=== PATIENT | male | born 1960 | race Caucasian/White ===

== ENCOUNTER 2016-11-24 22:11 | Emergency (ER) | payer SELFPAY ==
[~2016-11-24] VITALS: Ht 188 cm; Wt 81.8 kg
[~2016-11-24 22:11] MED LIST: Z.0.NO CURRENT MEDS
[2016-11-24 22:18] VITALS: BP 107/59; PULSE 91; RESP 18; TEMP 98.2; O2SAT 97
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
[2016-11-24] MEDS ORDERED: LIDOCAINE HCL 1% 50 ML VIAL ONE (22:38)
[2016-11-24] MEDS ORDERED: MORPHINE SULFATE 4 MG/ML INJ IV PUSH ONE ×2 (22:45→23:15)
[2016-11-24] MEDS ORDERED: SODIUM CHLOR 0.9% 1000 ML INJ 1,000 ML IV ONE (23:15)
[2016-11-24] MEDS ORDERED: LIDOCAINE HCL 1% 50 ML VIAL INFIL ONE (23:15)
[2016-11-24] MEDS ORDERED: ceFAZolin 2 GM PREMIX 50 ML IV ONE (23:15)
[2016-11-25 00:19] LABS: AUTOMATED NEUTROPHIL # 5.1 TH/MM3 (1.8-7.7); BASOPHIL % 0.4 % (0.0-2.0); EOSINOPHIL # 0.4 TH/MM3 (0-0.4); EOSINOPHIL % 4.3 % (0.0-4.0); HEMATOCRIT 34.1 % (39.0-51.0); HEMO FLAGS DIFF FINAL; LYMPH % 31.6 % (9.0-44.0); LYMPHOCYTE # 2.7 TH/MM3 (1.0-4.8); MEAN CELL VOLUME 98.5 FL (80.0-100.0); MEAN CORPUSCULAR HEMOGLOBIN 32.9 PG (27.0-34.0); MEAN CORPUSCULAR HGB CONC 33.3 % (32.0-36.0); MONO % 4.6 % (0.0-8.0); NEUT % 59.1 % (16.0-70.0); PLATELET COUNT 255 TH/MM3 (150-450); RED BLOOD COUNT 3.46 MIL/MM3 (4.50-5.90); RED CELL DISTRIBUTION WIDTH 14.5 % (11.6-17.2); WHITE BLOOD COUNT 8.6 TH/MM3 (4.0-11.0)
[2016-11-25 00:40] LABS: ALKALINE PHOSPHATASE 63 U/L (45-117); ALT (GPT) 45 U/L (12-78); ANION GAP 6 MEQ/L (5-15); AST (GOT) 29 U/L (15-37); BLOOD UREA NITROGEN 22 MG/DL (7-18); CHLORIDE 113 MEQ/L (98-107); GLOMERULAR FILTRATION RATE 100 ML/MIN (>89); SODIUM (NA) 145 MEQ/L (136-145); TOTAL BILIRUBIN ADULT 0.2 MG/DL (0.2-1.0)
[2016-11-25] MEDS ORDERED: IBUPROFEN 600 MG TAB PO ONE (01:30)
[2016-11-25 02:14] VITALS: BP 128/83; PULSE 76; RESP 18; TEMP 99.3; O2SAT 99
[2016-11-25 03:00] LABS: AMPHETAMINE, URINE NEG (NEG); BARBITURATES, URINE NEG (NEG); COCAINE, URINE POS (NEG)
[2016-11-25 10:51] VITALS: BP 101/66; PULSE 82; RESP 16; TEMP 96.6; O2SAT 98
[2016-11-25 14:34] VITALS: BP 91/64; PULSE 57; RESP 18; TEMP 98.5; O2SAT 96
[2016-11-25 18:32] VITALS: BP 91/64; TEMP 98.5
== END 2016-11-25 18:46 | disposition home or self-care (01) ==
LOC: NEPD 22:11 → NEPJ 11-25 18:46
DX: S51.812A Laceration without foreign body of left forearm, initial encounter (principal); R58 Hemorrhage, not elsewhere classified; T14.91 Suicide attempt; F10.929 Alcohol use, unspecified with intoxication, unspecified; F17.200 Nicotine dependence, unspecified, uncomplicated; X78.8XXA Intentional self-harm by other sharp object, initial encounter
CPT/HCPCS: 12032; 80053; 80307; 85025; 96374; 96375; 96376; 99291; J0690; J2270; J7030

== ENCOUNTER 2018-07-17 10:21 | Observation (INO) ==
--- NOTE | 2018-07-17 10:39 | ED ---
HPI General Chief Complaint: Chest Pain Stated Complaint: congestion/palpitations Time Seen by Provider: 07/17/18 10:36 Source: patient Mode of arrival: ambulatory Limitations: no limitations History of Present Illness HPI narrative: Patient comes in complaining of chest pain for the past 2 days...productive of green sputum, denies fever, states not oxygen dependant. patient also c/o palpitations assoc with gen weakness as well. MD complaint: Reports chest pain STEMI Alert: No Onset (ago): day(s) (2) Duration: intermittent Onset: during rest Pain location: Reports substernal Severity scale (1-10): 6 Quality: Reports tightness Pain radiation: Reports none Relieving factors: nothing Exacerbating factors: nothing Treatments prior to arrival chest pain: Reports none Related Data Home Medications Medication Instructions Recorded Confirmed No Known Home Medications 12/07/17 07/17/18 Previous Rx's Medication Instructions Recorded prednisone 20 mg PO DAILY #7 tab 07/18/18 sulfamethoxazole-trimethoprim 1 tab PO Q12H #20 tab 07/18/18 [Bactrim DS] Allergies Allergy/AdvReac Type Severity Reaction Status Date / Time No Known Allergies Allergy Verified 07/17/18 10:33 Review of Systems ROS: all other systems reviewed are negative PMFSH History History Provided By: Patient Medical History Medical History Hx of head injury (Acute) Surgical History Surgical History History of back surgery (Acute) Hx of appendectomy (Acute) Hx of cholecystectomy (Acute) Hx of neck surgery (Acute) Social History Social History Substance History: Past History Second Hand Smoke Exposure: No Smoking Status: Current some day smoker Tobacco Type: Cigarettes How Often Do You Have a Drink Containing Alcohol: Monthly or less Recent Travel [facility] within the Last 8 Weeks: No Recent Out of Country Travel within the Last 8 Weeks: No Immunization History Tetanus Immunization: <5 Years Exam Narrative Exam Narrative: GENERAL: Well-nourished, well-developed patient in no apparent distress. SKIN: Warm and dry. HEAD: Atraumatic. Normocephalic. EYES: Pupils equal and round. No scleral icterus. No injection or drainage. ENT: No nasal bleeding or discharge. Mucous membranes pink and moist. NECK: Trachea midline. No JVD. CARDIOVASCULAR: Regular rate and rhythm. no rubs or gallops RESPIRATORY: No accessory muscle use. Clear to auscultation. Breath sounds equal bilaterally. GASTROINTESTINAL: Abdomen soft, non-tender, nondistended. No rebound or guarding MUSCULOSKELETAL: Extremities without clubbing, cyanosis, or edema. No obvious deformities. NEUROLOGICAL: Awake and alert. No obvious cranial nerve deficits. Motor grossly within normal limits. Five out of 5 muscle strength in the arms and legs. Normal speech. PSYCHIATRIC: Appropriate mood and affect; insight and judgment normal. Course Initial Documented Vital Signs Temperature 98 F 07/17/18 10:29 Pulse Rate 86 07/17/18 10:29 Respiratory Rate 14 07/17/18 10:29 Blood Pressure 117/81 07/17/18 10:29 Pulse Oximetry 98 07/17/18 10:29 Last Documented Vital Signs Temperature 98.9 F 07/18/18 12:00 Pulse Rate 62 07/18/18 12:00 Respiratory Rate 20 07/18/18 12:00 Blood Pressure 86/50 L 07/18/18 12:00 Pulse Oximetry 93 L 07/18/18 12:00 Medical Decision Making MDM Narrative Medical decision making narrative: No leukocytosis, no left shift, no anemia, normal platelet count Normal electrolytes Normal kidney liver pancreatic functions Mild hyperglycemia 162 First set of cardiac enzymes negative CT chest read by radiologist as negative for pulmonary embolus, does have trace pericardial effusion which is a new finding since November 2017. Moderate coronary calcifications Patient was advised to stay for chest pain center to rule out Medical Screen Exam Complete: Yes Emergency Medical Condition: Yes Lab Data Result diagrams: 07/17/18 10:47 07/17/18 10:55 Lab Results 07/17/18 07/17/18 07/17/18 Range/Units 10:35 10:47 10:55 CBC w Diff Auto diff final WBC 5.5 (4.0-11.0) th/mm3 RBC 4.23 L (4.50-5.90) mil/mm3 Hgb 14.6 (13.0-17.0) gm/dL Hct 43.4 (39.0-51.0) % MCV 102.7 H (80.0-100.0) fL MCH 34.5 H (27.0-34.0) pg MCHC 33.6 (32.0-36.0) % RDW 11.5 L (11.6-17.2) % Plt Count 261 (150-450) th/mm3 MPV 7.8 (7.0-11.0) fL Neut % (Auto) 69.3 (16.0-70.0) % Lymph % (Auto) 20.3 (9.0-44.0) % [place] % (Auto) 8.7 H (0.0-8.0) % Eos % (Auto) 0.6 (0.0-4.0) % Baso % (Auto) 1.1 (0.0-2.0) % Neut # (Auto) 3.8 (1.8-7.7) th/mm3 Lymph # (Auto) 1.1 (1.0-4.8) th/mm3 [place] # (Auto) 0.5 (0.0-0.9) th/mm3 Eos # (Auto) 0.0 (0.0-0.4) th/mm3 Baso # (Auto) 0.1 (0.0-0.2) th/mm3 WBC Differential . Differential Comment . Sodium (136-145) meq/L Potassium (3.5-5.1) meq/L Chloride (98-107) meq/L Carbon Dioxide (21.0-32.0) meq/L Anion Gap (5-15) meq/L BUN (7-18) mg/dL Creatinine (0.60-1.30) mg/dL Estimated GFR (>89) mL/min Random Glucose (74-106) mg/dL Hemoglobin A1c (4.3-6.0) % Lactic Acid 1.6 (0.4-2.0) mmol/L Calcium (8.5-10.1) mg/dL Total Bilirubin (0.2-1.0) mg/dL AST (15-37) U/L ALT (12-78) U/L Alkaline Phosphatase (45-117) U/L Total Creatine Kinase (39-308) U/L Troponin I (0.02-0.05) ng/mL B-Natriuretic Peptide 76 (0-100) pg/mL Total Protein (6.4-8.2) g/dL Albumin (3.4-5.0) g/dL Triglycerides (42-150) mg/dL Cholesterol (120-200) mg/dL LDL Cholesterol, Calc (0-99) mg/dL HDL Cholesterol (40.0-60.0) mg/dL Cholesterol/HDL Ratio Ratio Lipase (73-393) U/L 07/17/18 07/17/18 07/17/18 Range/Units 10:55 10:55 17:04 CBC w Diff WBC (4.0-11.0) th/mm3 RBC (4.50-5.90) mil/mm3 Hgb (13.0-17.0) gm/dL Hct (39.0-51.0) % MCV (80.0-100.0) fL MCH (27.0-34.0) pg MCHC (32.0-36.0) % RDW (11.6-17.2) % Plt Count (150-450) th/mm3 MPV (7.0-11.0) fL Neut % (Auto) (16.0-70.0) % Lymph % (Auto) (9.0-44.0) % [place] % (Auto) (0.0-8.0) % Eos % (Auto) (0.0-4.0) % Baso % (Auto) (0.0-2.0) % Neut # (Auto) (1.8-7.7) th/mm3 Lymph # (Auto) (1.0-4.8) th/mm3 [place] # (Auto) (0.0-0.9) th/mm3 Eos # (Auto) (0.0-0.4) th/mm3 Baso # (Auto) (0.0-0.2) th/mm3 WBC Differential Differential Comment Sodium 136 (136-145) meq/L Potassium 3.9 (3.5-5.1) meq/L Chloride 102 (98-107) meq/L Carbon Dioxide 29.0 (21.0-32.0) meq/L Anion Gap 5 (5-15) meq/L BUN 12 (7-18) mg/dL Creatinine 0.92 (0.60-1.30) mg/dL Estimated GFR 84 L (>89) mL/min Random Glucose 162 H (74-106) mg/dL Hemoglobin A1c (4.3-6.0) % Lactic Acid (0.4-2.0) mmol/L Calcium 8.2 L (8.5-10.1) mg/dL Total Bilirubin 0.3 (0.2-1.0) mg/dL AST 39 H (15-37) U/L ALT 45 (12-78) U/L Alkaline Phosphatase 74 (45-117) U/L Total Creatine Kinase 74 69 (39-308) U/L Troponin I Less than 0.02 L Less than 0.02 L (0.02-0.05) ng/mL B-Natriuretic Peptide (0-100) pg/mL Total Protein 7.2 (6.4-8.2) g/dL Albumin 3.6 (3.4-5.0) g/dL Triglycerides 59 (42-150) mg/dL Cholesterol 128 (120-200) mg/dL LDL Cholesterol, Calc 57 (0-99) mg/dL HDL Cholesterol 58.9 (40.0-60.0) mg/dL Cholesterol/HDL Ratio 2.17 Ratio Lipase 118 (73-393) U/L 07/17/18 07/18/18 Range/Units 19:12 04:55 CBC w Diff WBC (4.0-11.0) th/mm3 RBC (4.50-5.90) mil/mm3 Hgb (13.0-17.0) gm/dL Hct (39.0-51.0) % MCV (80.0-100.0) fL MCH (27.0-34.0) pg MCHC (32.0-36.0) % RDW (11.6-17.2) % Plt Count (150-450) th/mm3 MPV (7.0-11.0) fL Neut % (Auto) (16.0-70.0) % Lymph % (Auto) (9.0-44.0) % [place] % (Auto) (0.0-8.0) % Eos % (Auto) (0.0-4.0) % Baso % (Auto) (0.0-2.0) % Neut # (Auto) (1.8-7.7) th/mm3 Lymph # (Auto) (1.0-4.8) th/mm3 [place] # (Auto) (0.0-0.9) th/mm3 Eos # (Auto) (0.0-0.4) th/mm3 Baso # (Auto) (0.0-0.2) th/mm3 WBC Differential Differential Comment Sodium (136-145) meq/L Potassium (3.5-5.1) meq/L Chloride (98-107) meq/L Carbon Dioxide (21.0-32.0) meq/L Anion Gap (5-15) meq/L BUN (7-18) mg/dL Creatinine (0.60-1.30) mg/dL Estimated GFR (>89) mL/min Random Glucose (74-106) mg/dL Hemoglobin A1c 5.5 (4.3-6.0) % Lactic Acid (0.4-2.0) mmol/L Calcium (8.5-10.1) mg/dL Total Bilirubin (0.2-1.0) mg/dL AST (15-37) U/L ALT (12-78) U/L Alkaline Phosphatase (45-117) U/L Total Creatine Kinase 70 (39-308) U/L Troponin I Less than 0.02 L (0.02-0.05) ng/mL B-Natriuretic Peptide (0-100) pg/mL Total Protein (6.4-8.2) g/dL Albumin (3.4-5.0) g/dL Triglycerides (42-150) mg/dL Cholesterol (120-200) mg/dL LDL Cholesterol, Calc (0-99) mg/dL HDL Cholesterol (40.0-60.0) mg/dL Cholesterol/HDL Ratio Ratio Lipase (73-393) U/L Imaging Data Radiologist's impression: Chest CTA 07/17/18 10:46 CONCLUSION: 1. Negative for pulmonary embolus. Trace pericardial effusion. This is a new finding since November 2017. 2. Moderate coronary calcifications. Chest X-Ray 07/17/18 10:47 CONCLUSION: The lungs are clear. Myocardial Perfusion Scan Nuc Med 07/18/18 09:00 CONCLUSION: 1. Negative examination. ECG Data EKG Prior to Arrival: No Attestation: I personally reviewed and interpreted this ECG as follows: Prior ECG tracings: not available for review Interpretation: Normal sinus rhythm, 84 bpm, normal intervals except for short appearing GA segment, some J-point elevation, but no evidence of any acute ST elevation HI pattern. Discharge Plan Discharge Disposition Patient Disposition: ED Admit(ED Internal Use Only) Discharge Condition Condition: Stable Discharge Order Discharge Orders: Discharge Order (Routine); Ordered 07/18/18 Ordered By: Shine Cartagena ED Use Only Admit Order (Routine); Ordered 07/17/18 Ordered By: Jasper Coyle Discharge Details Diagnosis: Chest pain, rule out acute myocardial infarction Physicians Team ED Provider: Jasper Coyle Primary Care Provider: Chu Arthur Attending Provider: Shine Cartagena Status ED Status: Left Department Discharge Information Discharge Date/Time: 07/17/18 14:35
[2018-07-17] MEDS ORDERED: Morphine Inj 4 MG/ML Vial IV.PUSH ONE (10:46)
[2018-07-17] MEDS ORDERED: Sodium Chlor 0.9% Inj 500 ML IV.SIG ONE (10:46)
[2018-07-17 11:07] LABS: Baso # (Auto) 0.1 th/mm3 (0.0-0.2); Baso % (Auto) 1.1 % (0.0-2.0); Eos % (Auto) 0.6 % (0.0-4.0); Hematocrit 43.4 % (39.0-51.0); Hemoglobin 14.6 gm/dL (13.0-17.0); Lymph # (Auto) 1.1 th/mm3 (1.0-4.8); Lymph % (Auto) 20.3 % (9.0-44.0); Mean Corpuscular HGB Conc 33.6 % (32.0-36.0); Mean Corpuscular Hemoglobin 34.5 pg (27.0-34.0); Mean Corpuscular Volume 102.7 fL (80.0-100.0); Mean Platelet Volume 7.8 fL (7.0-11.0); Mono # (Auto) 0.5 th/mm3 (0.0-0.9); Mono % (Auto) 8.7 % (0.0-8.0); Neut # (Auto) 3.8 th/mm3 (1.8-7.7); Neut % (Auto) 69.3 % (16.0-70.0); Platelet Count 261 th/mm3 (150-450); Red Blood Count 4.23 mil/mm3 (4.50-5.90); Red Cell Distribution Width 11.5 % (11.6-17.2); White Blood Count 5.5 th/mm3 (4.0-11.0)
[2018-07-17 11:15] LABS: Chloride 102 meq/L (98-107); Potassium 3.9 meq/L (3.5-5.1); Sodium 136 meq/L (136-145)
[2018-07-17 11:18] LABS: Calcium 8.2 mg/dL (8.5-10.1)
[2018-07-17 11:19] LABS: Albumin 3.6 g/dL (3.4-5.0); Anion Gap 5 meq/L (5-15); Blood Urea Nitrogen 12 mg/dL (7-18); Glucose,Random 162 mg/dL (74-106)
[2018-07-17 11:22] LABS: Alanine Aminotransferase 45 U/L (12-78); Aspartate Aminotransferase 39 U/L (15-37); Glomerular Filtration Rate 84 mL/min (>89)
[2018-07-17 11:23] LABS: Total Protein 7.2 g/dL (6.4-8.2)
[2018-07-17 11:25] LABS: Alkaline Phosphatase 74 U/L (45-117)
--- NOTE | 2018-07-17 11:28 | XR ---
EXAM DATE: 07/17/2018 11:15 AM EST AGE/SEX: 58 years / Male INDICATIONS: Cough, congestion, heart palpatations, chest pain x 3 days. CLINICAL DATA: This is the patient's initial encounter. Patient reports that signs and symptoms have been present for 3 days and indicates a pain score of 5/10. MEDICAL/SURGICAL HISTORY: None. Appendectomy. Cholecystectomy. COMPARISON: [facility], CHEST 1V SINGLE AP, 12/07/2017. . FINDINGS: A single AP view of the chest demonstrates the lungs to be symmetrically aerated without evidence of mass, infiltrate or effusion. The cardiomediastinal contours are unremarkable. Osseous structures a re intact. CONCLUSION: The lungs are clear. Electronically signed by: Shine Vásquez MD Board Certified Radiologist 07/17/2018 11:27 AM EST
[2018-07-17 11:34] LABS: Creatine Kinase 74 U/L (39-308)
--- NOTE | 2018-07-17 11:45 | CT ---
EXAM DATE: 07/17/2018 11:39 AM EST AGE/SEX: 58 years / Male INDICATIONS: Substernal chest pain x 2 days. General weakness. Coughing up green sputum. CLINICAL DATA: This is the patient's initial encounter. Patient reports that signs and symptoms have been present for 2 days and indicates a pain score of 5/10. MEDICAL/SURGICAL HISTORY: None. Appendectomy. Cholecystectomy. Neck and back surgeries. RADIATION DOSE: 8.96 CTDI (mGy) COMPARISON: [facility], CTA PULMONARY W CONTRAST W 3D, 12/07/2017. . TECHNIQUE: Volumetric scanning was performed using a multi-row detector CT scanner during bolus infu vanessa of 75 ml Omnipaque 350 (iohexol) nonionic water-soluble contrast as a single exam dose. The angela a was post processed with a variety of visualization algorithms including full volume maximum intensi ty projection and sliding thin slab reformation. Using automated exposure control and adjustment of the mA and/or kV according to patient size, radiation dose was kept as low as reasonably achievable t o obtain optimal diagnostic quality images. DICOM format image data is available electronically for review and comparison. FINDINGS: No filling defects are seen to suggest pulmonary embolic disease. No new lung consolidation. There is no pleural effusion. There is trace pericardial fluid. Moderate coronary calcifications. There is no hilar, mediastinal or axillary adenopathy. No acute bony abnormalities. CONCLUSION: 1. Negative for pulmonary embolus. Trace pericardial effusion. This is a new finding since November 2017 . 2. Moderate coronary calcifications. Electronically signed by: Sandip Davis MD Board Certified Radiologist 07/17/2018 11:43 AM EST
--- NOTE | 2018-07-17 15:45 | ECG ---
Date Performed: 07/17/2018 Time Performed: 10:32:08 PTAGE: 58 years EKG: Sinus rhythm WITH SHORT MT INTERVAL BORDERLINE RIGHT AXIS DEVIATION BORDERLINE ECG Since PREVIOUS TRACING , no significant change noted PREVIOUS TRACIN12/07/2017 12.44 DOCTOR: Guadalupe Jaquez Interpretating Date/Time 07/17/2018 15:43:12
[2018-07-17] MEDS ORDERED: Temazepam 15 MG Capsule PO PRN (16:32)
--- NOTE | 2018-07-17 16:40 | P.HPIM ---
History of Present Illness Primary Care Physician: Chu Arthur DO Chief Complaint: chest pain History of Present Illness: 58-year-old man in for 30+ year presented to the ED for evaluation of described as heaviness, stabbing without any radiation since Friday, July 13, 2018 associated with shortness of breath. Patient also describes a sensation of click pain in his anterior chest. He also reported sputum production on Saturday however denies any febrile episode. Patient states, he is concerned about heart attack secondary to strong family history of heart disease. Chest x-ray in the ED was unremarkable and a chest CTA did not reveal any PE. Initial cardiac enzyme was negative Review of Systems Review of Systems: all other systems reviewed are negative [facility] Medical History Medical History Hx of head injury (Acute) Surgical History Surgical History History of back surgery (Acute) Hx of appendectomy (Acute) Hx of cholecystectomy (Acute) Hx of neck surgery (Acute) Social History Social History Substance History: No History of Abuse Second Hand Smoke Exposure: Yes Smoking Status: Current every day smoker Tobacco Type: Cigarettes How Often Do You Have a Drink Containing Alcohol: 2 to 4 times a month Recent Travel in [facility] within the Last 8 Weeks: No Recent Out of Country Travel within the Last 8 Weeks: No Immunization History Tetanus Immunization: <5 Years Medications and Allergies Allergies Allergy/AdvReac Type Severity Reaction Status Date / Time No Known Allergies Allergy Verified 07/17/18 10:33 Home Medications Medication Instructions Recorded Confirmed Type No Known Home Medications 12/07/17 07/17/18 History Active Medications: Active Medications Acetaminophen (Tylenol) 650 mg PO Q4H PRN PRN Reason: Temp > 100.4 Albuterol (Duoneb Neb (Prn)) 1 ampul NEB Q2HR NEB PRN PRN Reason: SHORTNESS OF BREATH Nitroglycerin (Nitrostat Sl) 0.4 mg SL Q5M PRN PRN Reason: CHEST PAIN Ondansetron HCl (Zofran Inj) 4 mg IV.PUSH Q6H PRN PRN Reason: NAUSEA Sodium Chloride (Ns Flush) 2 ml IV.FLUSH UNSCH PRN PRN Reason: FLUSH AFTER USING IV ACCESS Sodium Chloride (Ns Flush) 2 ml IV.FLUSH BID MINERVA Sodium Chloride (Ns Flush) 2 ml IV.FLUSH PRN PRN PRN Reason: FLUSH AFTER USING IV ACCESS Temazepam (Restoril) 15 mg PO HS PRN PRN Reason: INSOMNIA Physical Exam Vital signs: Vital Signs 07/17/18 10:29 07/17/18 11:04 07/17/18 13:44 Temperature 98 F 98.6 F Pulse Rate 86 66 Respiratory Rate 14 20 Blood Pressure 117/81 117/78 Pulse Oximetry 98 100 97 Intake & Output 07/16/18 07/17/18 07/17/18 18:59 06:59 18:59 Intake Total 500 / 500 Balance 500 / 500 Weight 73.5 kg Intake: IV 500 / 500 NS Inj 500 ML @ Wide Open IV. 500 / 500 SIG ONCE ONE Rx#:[id number] Narrative: GENERAL: NAD SKIN: Warm and dry. HEAD: Atraumatic. Normocephalic. EYES: Pupils equal and round. No scleral icterus. No injection or drainage. ENT: No nasal bleeding or discharge. Mucous membranes pink and moist. NECK: Trachea midline. No JVD. CARDIOVASCULAR: Regular rate and rhythm. RESPIRATORY: No accessory muscle use. Clear to auscultation. Breath sounds equal bilaterally. GASTROINTESTINAL: Abdomen soft, non-tender, nondistended. Hepatic and splenic margins not palpable. MUSCULOSKELETAL: Extremities without clubbing, cyanosis, or edema. No obvious deformities. NEUROLOGICAL: Awake and alert. No obvious cranial nerve deficits. Motor grossly within normal limits. Five out of 5 muscle strength in the arms and legs. Normal speech. PSYCHIATRIC: Appropriate mood and affect; insight and judgment normal. Results Labs CBC & Chem 7: 07/17/18 10:47 07/17/18 10:55 Imaging Impressions Chest CTA 07/17/18 10:46 CONCLUSION: 1. Negative for pulmonary embolus. Trace pericardial effusion. This is a new finding since November 2017. 2. Moderate coronary calcifications. Chest X-Ray 07/17/18 10:47 CONCLUSION: The lungs are clear. Caprini VTE Risk Assessment Caprini VTE Risk Assessment: No/Low Risk (score <= 1) Caprini Risk Assessment Model: Point Value = 1 Point Value = 2 Point Value = 3 Point Value = 5 Age 41-60 Minor surgery BMI > 25 kg/m2 Swollen legs Varicose veins or History of unexplained or recurrent spontaneous Oral contraceptives or hormone replacement Sepsis (< 1 month) Serious lung disease, including pneumonia (< 1 month) Abnormal pulmonary function Acute myocardial infarction Congestive heart failure (< 1 month) History of inflammatory bowel disease Medical patient at bed rest Age 61-74 Arthroscopic surgery Major open surgery (> 45 min) Laparoscopic surgery (> 45 min) Malignancy Confined to bed (> 72 hours) Immobilizing plaster cast Central venous access Age >= 75 History of VTE Family history of VTE Factor V Leiden Prothrombin [id number] Lupus anticoagulant Anticardiolipin antibodies Elevated serum homocysteine Heparin-induced thrombocytopenia Other congenital or acquired thrombophilia Stroke (< 1 month) Elective arthroplasty Hip, pelvis, or leg fracture Acute spinal cord injury (< 1 month) Prophylaxis Regimen: Total Risk Factor Score Risk Level Prophylaxis Regimen 0-1 Low Early ambulation 2 Moderate Order ONE of the following: *Sequential Compression Device (SCD) *Heparin 5000 units SQ BID 3-4 Higher Order ONE of the following medications: *Heparin 5000 units SQ TID *Enoxaparin/Lovenox 40 mg SQ daily (WT < 150 kg, CrCl > 30 mL/min) *Enoxaparin/Lovenox 30 mg SQ daily (WT < 150 kg, CrCl > 10-29 mL/min) *Enoxaparin/Lovenox 30 mg SQ BID (WT < 150 kg, CrCl > 30 mL/min) AND/OR *Sequential Compression Device (SCD) 5 or more Highest Order ONE of the following medications: *Heparin 5000 units SQ TID (Preferred with Epidurals) *Enoxaparin/Lovenox 40 mg SQ daily (WT < 150 kg, CrCl > 30 mL/min) *Enoxaparin/Lovenox 30 mg SQ daily (WT < 150 kg, CrCl > 10-29 mL/min) *Enoxaparin/Lovenox 30 mg SQ BID (WT < 150 kg, CrCl > 30 mL/min) AND *Sequential Compression Device (SCD) Assessment and Plan Plan 58-year-old man with Atypical chest pain Although this appears to be likely secondary to bronchitis, however due to strong family history We will rule out ACS per protocol serial cardiac enzyme and EKGs Check 2D echo and plan for nuclear stress test in a.m. Start aspirin, nitro glycerin as needed and check lipid profile Telemetry monitoring Tobacco cessation strongly advised Bronchitis Start Levaquin 500 mg p.o. daily, prednisone 20 mg daily times 5 days Hyperglycemia Denies any known history of diabetes type 2, will check hemoglobin A1c and treat accordingly Tobacco abuse Patient was strongly counseled on tobacco cessation Hold nicotine patch
[2018-07-17 18:01] LABS: Creatine Kinase 69 U/L (39-308)
[2018-07-17] MEDS: Acetaminophen 325 MG Tablet PO PRN ×2 (18:23→22:45)
[2018-07-17 19:12] LABS: Cholesterol 128 mg/dL (120-200); Triglycerides 59 mg/dL (42-150)
[2018-07-17 19:14] LABS: Chol/HDL Ratio 2.17 Ratio; HDL Cholesterol 58.9 mg/dL (40.0-60.0); LDL Cholesterol,Calculated 57 mg/dL (0-99)
[2018-07-17 19:51] LABS: Creatine Kinase 70 U/L (39-308)
--- NOTE | 2018-07-17 21:08 | ECG ---
Date Performed: 07/17/2018 Time Performed: 19:14:09 PTAGE: 58 years EKG: ECTOPIC ATRIAL RHYTHM WITH SHORT CA INTERVAL BORDERLINE RIGHT AXIS DEVIATION NONSPECIFIC IN FERIOR ST ABNORMALITY ABNORMAL RHYTHM ECG PREVIOUS TRACING : 07/17/2018 16.47 No significant change from previous tracing noted. DOCTOR: Enmanuel Burleson Interpretating Date/Time 07/17/2018 21:07:08
--- NOTE | 2018-07-17 21:11 | ECG ---
Date Performed: 07/17/2018 Time Performed: 16:47:09 PTAGE: 58 years EKG: Sinus rhythm WITH SHORT ND INTERVAL LOW QRS VOLTAGE IN EXTREMITY LEADS BORDERLINE ECG PREVIOUS TRACING : 07/17/2018 10.32 No significant change from previous tracing noted. DOCTOR: Enmanuel Burleson Interpretating Date/Time 07/17/2018 21:10:55
[2018-07-18 06:20] VITALS: RESP 20
[2018-07-18] MEDS ORDERED: predniSONE 20 MG Tablet PO SCH (09:00)
[2018-07-18] MEDS ORDERED: levoFLOXacin 500 MG Tablet PO SCH (09:00)
[2018-07-18] MEDS: Acetaminophen 325 MG Tablet PO PRN (09:13)
[2018-07-18 09:57] VITALS: O2SAT 93
--- NOTE | 2018-07-18 10:17 | P.PNIM ---
Subjective Interval history: Follow-up chest pain July 18, 2018patient seen and examined, spike fevers overnight and now with significant nonproductive cough. Still with chest pain. N.p.o. Physical Exam Vital signs: Vital Signs 07/17/18 10:29 07/17/18 11:04 07/17/18 13:44 Temperature 98 F 98.6 F Pulse Rate 86 66 Respiratory Rate 14 20 Blood Pressure 117/81 117/78 Pulse Oximetry 98 100 97 07/17/18 16:00 07/17/18 17:05 07/17/18 18:15 Temperature 100.8 F H 102 F H Pulse Rate 64 67 Respiratory Rate 20 Blood Pressure 129/82 Pulse Oximetry 95 07/17/18 18:53 07/17/18 19:52 07/17/18 20:00 Temperature 101.0 F H Pulse Rate 62 Respiratory Rate 18 22 Blood Pressure 101/63 Pulse Oximetry 93 L 96 07/17/18 20:20 07/18/18 00:00 07/18/18 00:05 Temperature 99.8 F H Pulse Rate 59 L 56 L 59 L Respiratory Rate 24 Blood Pressure 97/65 L Pulse Oximetry 97 07/18/18 04:00 07/18/18 06:19 07/18/18 08:00 Temperature 99.8 F H 100.5 F H Pulse Rate 63 67 71 Respiratory Rate 22 20 20 Blood Pressure 97/50 L 104/64 99/62 L Pulse Oximetry 93 L 94 L 07/18/18 09:57 Temperature Pulse Rate Respiratory Rate Blood Pressure Pulse Oximetry 93 L Intake & Output 07/17/18 07/18/18 07/18/18 18:59 06:59 18:59 Intake Total 800 / 800 Balance 800 / 800 Weight 70.9 kg 71.7 kg Intake: IV 500 / 500 NS Inj 500 ML @ Wide Open IV. 500 / 500 SIG ONCE ONE Rx#:[id number] Oral 300 / 300 Other: # Voids 2 5 Date of Last Bowel Movement 07/16/18 Narrative: GENERAL: NAD SKIN: Warm and dry. HEAD: Atraumatic. Normocephalic. EYES: Pupils equal and round. No scleral icterus. No injection or drainage. ENT: No nasal bleeding or discharge. Mucous membranes pink and moist. NECK: Trachea midline. No JVD. CARDIOVASCULAR: Regular rate and rhythm. RESPIRATORY: No accessory muscle use. Clear to auscultation. Breath sounds equal bilaterally. GASTROINTESTINAL: Abdomen soft, non-tender, nondistended. Hepatic and splenic margins not palpable. MUSCULOSKELETAL: Extremities without clubbing, cyanosis, or edema. No obvious deformities. NEUROLOGICAL: Awake and alert. No obvious cranial nerve deficits. Motor grossly within normal limits. Five out of 5 muscle strength in the arms and legs. Normal speech. PSYCHIATRIC: Appropriate mood and affect; insight and judgment normal. Results Labs CBC & Chem 7: 07/17/18 10:47 07/17/18 10:55 Imaging Imaging: Impressions Chest CTA 07/17/18 10:46 CONCLUSION: 1. Negative for pulmonary embolus. Trace pericardial effusion. This is a new finding since November 2017. 2. Moderate coronary calcifications. Chest X-Ray 07/17/18 10:47 CONCLUSION: The lungs are clear. Assessment and Plan Plan 58-year-old man with Atypical chest pain Although this appears to be likely secondary to bronchitis, however due to strong family history We will rule out ACS per protocol serial cardiac enzyme and EKGs Check 2D echo and plan for nuclear stress test in a.m. Continue aspirin, nitro glycerin as needed and check lipid profile Telemetry monitoring Tobacco cessation strongly advised Bronchitis/questionable pneumonia Continue Levaquin 500 mg p.o. daily, prednisone 20 mg daily times 5 days DuoNeb as needed Start Mucinex Hyperglycemia Denies any known history of diabetes type 2, hemoglobin A1c pending and treat accordingly Tobacco abuse Patient was strongly counseled on tobacco cessation Hold nicotine patch Progress Note: Quality VTE Deep Vein Thrombosis/Pulmonary Embolism Present on Admission: Yes
--- NOTE | 2018-07-18 10:25 | ECHRPT ---
Indication: Chest Pain CONCLUSIONS Normal left ventricular size. Wall thickness is normal. The left ventricular systolic function is normal with an estimated ejection fraction in the range of 55-60%. Trace mitral valve regurgitation. There is trace tricuspid valve regurgitation. The estimated pulmonary arterial pressure is 34 mmHg. BP: / HR: Rhythm: MEASUREMENTS (Male / Female) Normal Values Technical Quality:Fair 2D ECHO LV Diastolic Diameter PLAX 4.8 cm 4.2 - 5.9 / 3.9 - 5.3 cm LV Systolic Diameter PLAX 3.3 cm IVS Diastolic Thickness 1.0 cm 0.6 - 1.0 / 0.6 - 0.9 cm LVPW Diastolic Thickness 1.0 cm 0.6 - 1.0 / 0.6 - 0.9 cm LV Relative Wall Thickness 0.4 RV Internal Dim ED PLAX 3.1 cm LVOT Diameter 2.2 cm Aortic Root Diameter 2.9 cm LA Systolic Diameter LX 2.8 cm 3.0 - 4.0 / 2.7 - 3.8 cm DOPPLER AV Peak Velocity 111.0 cm/s AV Peak Gradient 4.9 mmHg LVOT Peak Velocity 90.8 cm/s LVOT Peak Gradient 3.3 mmHg AV Area Cont Eq pk 3.1 cm Mitral E Point Velocity 55.8 cm/s Mitral A Point Velocity 50.8 cm/s Mitral E to A Ratio 1.1 LV E' Lateral Velocity 10.1 cm/s Mitral E to LV E' Lateral Ratio 5.5 LV E' Septal Velocity 9.8 cm/s Mitral E to LV E' Septal Ratio 5.7 TR Peak Velocity 244.0 cm/s TR Peak Gradient 23.8 mmHg Right Atrial Pressure 10.0 mmHg Pulmonary Artery Systolic Pressu 33.8 mmHg Right Ventricular Systolic Press 33.8 mmHg PV Peak Velocity 76.0 cm/s PV Peak Gradient 2.3 mmHg FINDINGS LEFT VENTRICLE Normal left ventricular size. Wall thickness is normal. The left ventricular systolic function is normal with an estimated ejection fraction in the range of 55-60%. RIGHT VENTRICLE Normal right ventricular size and systolic function. LEFT ATRIUM The left atrial size is normal. RIGHT ATRIUM The right atrial size is normal. ATRIAL SEPTUM Normal atrial septal thickness without atrial level shunting by limited color doppler interrogation. AORTA The aortic root and proximal ascending aorta are normal in size on limited imaging. MITRAL VALVE Trace mitral valve regurgitation. AORTIC VALVE Trileaflet aortic valve. No aortic valve stenosis or regurgitation. TRICUSPID VALVE There is trace tricuspid valve regurgitation. The estimated pulmonary arterial pressure is 34 mmHg. PULMONARY VALVE The pulmonary valve is not well visualized. VESSELS The inferior vena cava is normal in size. PERICARDIUM No pericardial effusion. Vonnie Pruett MD, FACC (Electronically Signed) Final Date:18 July 2018 10:24
[2018-07-18] MEDS ORDERED: Regadenoson Inj 0.4 MG/5 ML Syringe IV.PUSH ONE (12:10)
--- NOTE | 2018-07-18 13:34 | NM ---
EXAM DATE: 07/18/2018 1:31 PM EST AGE/SEX: 58 years / Male INDICATIONS:Angina. . CLINICAL DATA: This is the patient's initial encounter. Patient reports that signs and symptoms have been present for 2 days and indicates a pain score of 7/10. MEDICAL/SURGICAL HISTORY: None. Appendectomy. Cholecystectomy. COMPARISON: No prior exams available for comparison. DOSE: 8.6 mCi Tc 99m Myoview at rest 26.1 mCi [id number] at stress 0.4 mg Lexiscan STRESS SYMPTOMS: Dyspnea. EJECTION FRACTION: 67 % TECHNIQUE: The patient underwent pharmacologic stress with infusion of prescribed dose. Continuous ECG tracing was monitored during stress. Gated SPECT imaging was performed after stress and conventi onal SPECT imaging was performed at rest. The examination was performed on a SPECT/CT scanner, both attenuation and non-corrected datasets were reviewed. FINDINGS: Distribution: The maximum perfused segment at stress is in the anterolateral wall. Perfusion Study: The pattern of perfusion at stress is within normal limits. Gated Study: There are intact wall motion and wall thickening without hypokinetic or dyskinetic segm ents. The ejection fraction is calculated at 67%. RISK CATEGORY: Low (<1% Annual Mortality Rate) CONCLUSION: 1. Negative examination. Electronically signed by: Thea Dominguez MD Board Certified Radiologist 07/18/2018 1:33 PM EST
--- NOTE | 2018-07-18 14:36 | P.PNIM ---
Patient had a negative nuclear stress test, therefore he will be discharged home on p.o. antibiotics for bronchitis/pneumonia Discharge patient to home Condition on discharge: Improved Regular Diet as tolerated Ad Leighann activity Rx written:see EMR Follow-up with primary care physician
[2018-07-18 15:00] VITALS: BP 86/50; PULSE 62; TEMP 98.9
--- NOTE | 2018-07-18 19:25 | TR ---
Date Performed: 07/18/2018 Time Performed: 12:40:15 DOCTOR: Demetrius Raines DRUG LIST: CLINICAL HISTORY: REASON FOR TEST: Chest pain REASON FOR ENDING: OBSERVATION: CONCLUSION: Lexiscan stress test was performed under standard four minute protocol. Radionuclide was injected one minute prior to ending the test. No electrocardiographic abormalities were present to suggest ischemia. Nuclear imaging and interpretation are pending. COMMENTS:
[2018-07-18] MEDS ORDERED: guaiFENesin 600 MG ER Tablet PO SCH (21:00)
[2018-07-18 22:04] LABS: Hemoglobin A1c 5.5 % (4.3-6.0)
== END 2018-07-18 16:10 | disposition home or self-care (01) ==
LOC: PHEDA 10:21 → PHED 10:21 → PH3 14:26
PROVIDERS: ADMIT Hospitalist; ATTEND Hospitalist
DX: F17.210 Nicotine dependence, cigarettes, uncomplicated; R07.89 Other chest pain; R06.02 Shortness of breath; R73.9 Hyperglycemia, unspecified; J40 Bronchitis, not specified as acute or chronic; I25.10 Atherosclerotic heart disease of native coronary artery without angina pectoris
CPT/HCPCS: 71010; 71045; 71275; 78452; 80053; 80061; 82550; 83036; 83520; 83605; 83690; 83880; 84484; 85025; 87040; 90761; 90774; 93005; 93017; 93306; 96361; 96374; 99285; A9502; C8952; G0378; J2270; J2785; J7040; J7506; J7512; Q9967; Q9969